=== PATIENT | female | born 1985 ===

== ENCOUNTER 2020-07-11 10:59 | Emergency (ER) | payer SELFPAY ==
[2020-07-11 11:07] VITALS: BP 132/71
[2020-07-11] MEDS ORDERED: oxyCODONE /ACETAMINOPHEN 5-325MG TAB PO ONE (11:18)
[2020-07-11] MEDS ORDERED: ONDANSETRON 4 MG ODT TAB PO ONE (11:18)
[2020-07-11] MEDS ORDERED: SODIUM CHLORIDE 0.9% IRR 500 ML BOTTLE IR ONE (11:21)
--- NOTE | 2020-07-11 11:36 | XRay Report ---
RIGHT FINGER(S)/HAND 3 VIEW(S) INDICATION / CLINICAL INFORMATION: Large laceration/amputation COMPARISON: None available. FINDINGS: BONES / JOINT(S): No acute fracture or subluxation. No significant arthritis. SOFT TISSUES: Soft tissue injury in the region of the PIP joint of the index finger. Mild edema/indur ation. ADDITIONAL FINDINGS: None. Signer Name: Tho Lozada MD Signed: 07/11/2020 11:32 AM Workstation Name: [id number]
[2020-07-11] MEDS ORDERED: DIPHtheria,PERTUSSIS(ACELL),TETANUS VACCINE/PF 0.5 ML VIAL IM ONE (12:27)
[2020-07-11] MEDS ORDERED: NEOMY 3.5 MG/BACIT 400 UNITS/POLY B 5000 UNITS/GM OINT PACKET TP ONE (12:30)
--- NOTE | 2020-07-11 12:30 | Emergency Department Report ---
- General Chief Complaint: Wound/Laceration Stated Complaint: RT FINGER LAC/PAIN Time Seen by Provider: 07/11/20 11:15 Source: patient Mode of arrival: Ambulatory Limitations: Language Barrier - History of Present Illness Initial Comments: zaina Sauceda used for [place]i interpretation Patient is a 35-year-old female presents emergency room with complaints of a laceration to the right index finger that occurred just prior to arrival. Patient states that she was cutting onions with a kitchen knife and accidentally cut herself. She denies ever injuring this finger in the past. She denies any numbness or weakness. She is still able to move the finger without difficulty. She denies any past medical history. No allergies to medications. She is unsure of her last tetanus immunization. - Related Data Previous Rx's Medication Instructions Recorded Last Taken Type HYDROcodone/APAP 5-325 [[place] 1 each PO Q6HR PRN #10 tablet 07/11/20 Unknown Rx 5/325] Ibuprofen [Motrin 600 MG tab] 600 mg PO Q8H PRN #14 tablet 07/11/20 Unknown Rx Neomycin/Bacitracin/Polymyxinb 1 applicatio TP BID #1 oint...g. 07/11/20 Unknown Rx [Triple Antibiotic Ointment] Sulfamethoxazole/Trimethoprim 1 each PO BID 7 Days #14 tablet 07/11/20 Unknown Rx [Bactrim DS TAB] Allergies Allergy/AdvReac Type Severity Reaction Status Date / Time No Known Allergies Allergy Unverified 07/11/20 11:06 ED Review of Systems ROS: Stated complaint: RT FINGER LAC/PAIN Other details as noted in HPI Comment: All other systems reviewed and negative ED Past Medical Hx - Past Medical History Previous Medical History?: No - Surgical History Past Surgical History?: No - Social History Smoking Status: Never Smoker Substance Use Type: None - Medications Home Medications: Home Medications Medication Instructions Recorded Confirmed Last Taken Type HYDROcodone/APAP 5-325 [[place] 1 each PO Q6HR PRN #10 tablet 07/11/20 Unknown Rx 5/325] Ibuprofen [Motrin 600 MG tab] 600 mg PO Q8H PRN #14 tablet 07/11/20 Unknown Rx Neomycin/Bacitracin/Polymyxinb 1 applicatio TP BID #1 oint...g. 07/11/20 Unknown Rx [Triple Antibiotic Ointment] Sulfamethoxazole/Trimethoprim 1 each PO BID 7 Days #14 tablet 07/11/20 Unknown Rx [Bactrim DS TAB] ED Physical Exam - General Limitations: No Limitations General appearance: alert, in no apparent distress - Head Head exam: Present: atraumatic, normocephalic - Eye Eye exam: Present: normal appearance - ENT ENT exam: Present: mucous membranes moist - Extremities Exam Extremities exam: Present: other (1 cm complete skin avulsion present to the right distal finger with a partial nail avulsion, no nail bed involvement, no muscle/tendon involvement, appears to only involve the skin and part of the subcutaneous fat, FROM of the right hand, fingers, neurovascularly intact, small amount of bleeding) - Neurological Exam Neurological exam: Present: alert, oriented X3 - Psychiatric Psychiatric exam: Present: normal affect, normal mood - Skin Skin exam: Present: warm, dry ED Course Vital Signs 07/11/20 07/11/20 11:06 11:34 Temperature 98 F Pulse Rate 79 Respiratory 16 18 Rate Blood Pressure 132/71 [Right] O2 Sat by Pulse 98 Oximetry ED Medical Decision Making - Radiology Data Radiology results: report reviewed RIGHT FINGER(S)/HAND 3 VIEW(S) INDICATION / CLINICAL INFORMATION: Large laceration/amputation COMPARISON: None available. FINDINGS: BONES / JOINT(S): No acute fracture or subluxation. No significant arthritis. SOFT TISSUES: Soft tissue injury in the region of the PIP joint of the index finger. Mild edema/induration. ADDITIONAL FINDINGS: None. Signer Name: Tho Lozada MD Signed: 07/11/2020 11:32 AM Workstation Name: [id number] Transcribed By: Dictated By: THO LOZADA III Electronically Authenticated By: THO LOZADA III Signed Date/Time: 07/11/20 1132 DD/ 1131 TD/TT: - Medical Decision Making zaina Sauceda used for [place]i interpretation Patient is a 35-year-old female presents emergency room with complaints of a laceration to the right index finger that occurred just prior to arrival. Patient states that she was cutting onions with a kitchen knife and accidentally cut herself. She denies ever injuring this finger in the past. She denies any numbness or weakness. She is still able to move the finger without difficulty. She denies any past medical history. No allergies to medications. She is unsure of her last tetanus immunization. vitals are normal. on exam: 1 cm complete skin avulsion present to the right distal finger with a partial nail avulsion, no nail bed involvement, no muscle/tendon involvement, appears to only involve the skin and part of the subcutaneous fat, FROM of the right hand, fingers, neurovascularly intact, small amount of bleeding. XR right hand: BONES / JOINT(S): No acute fracture or subluxation. No significant arthritis. SOFT TISSUES: Soft tissue injury in the region of the PIP joint of the index finger. Mild edema/induration. ADDITIONAL FINDINGS: None. Wound irrigated with 500 mL's of saline and Betadine. Triple antibiotic ointment and Vaseline gauze and sterile dressing placed by nurse. Patient given prescription for antibiotic ointment and Bactrim and pain medication. Advised patient to please take medication as prescribed. Do not drive or operate machinery while taking pain medication. Please keep area clean, dry, covered. Wash area twice a day with soap and water and pat dry. No hot tub, no pool, no soaking in water. Follow- up with a primary care doctor for reexamination. Return to emergency room for any new or worsening symptoms. Critical care attestation.: If time is entered above; I have spent that time in minutes in the direct care of this critically ill patient, excluding procedure time. ED Disposition Clinical Impression: Skin avulsion, Nail avulsion Disposition: [id number] TO HOME OR SELFCARE Is pt being admited?: No Does the pt Need Aspirin: No Condition: Stable Instructions: Skin Avulsion (ED) Additional Instructions: please take medication as prescribed. Do not drive or operate machinery while taking pain medication. Please keep area clean, dry, covered. Wash area twice a day with soap and water and pat dry. No hot tub, no pool, no soaking in water. Follow-up with a primary care doctor for reexamination. Return to emergency room for any new or worsening symptoms. Prescriptions: Sulfamethoxazole/Trimethoprim [Bactrim DS TAB] 1 each PO BID 7 Days #14 tablet Ibuprofen [Motrin 600 MG tab] 600 mg PO Q8H PRN #14 tablet PRN Reason: Pain, Moderate (4-6) HYDROcodone/APAP 5-325 [[place] 5/325] 1 each PO Q6HR PRN #10 tablet PRN Reason: Pain , Severe (7-10) Neomycin/Bacitracin/Polymyxinb [Triple Antibiotic Ointment] 1 applicatio TP BID #1 oint...g. Referrals: MARTA BUNCH MD [Staff Physician] - 2-3 Days Time of Disposition: 12:32 Print Language: AZERI
== END 2020-07-11 13:43 | disposition home or self-care (01) ==
LOC: ED 10:59
DX: S61.300A Unspecified open wound of right index finger with damage to nail, initial encounter (principal); X58.XXXA Exposure to other specified factors, initial encounter; Y93.89 Activity, other specified; Y92.89 Other specified places as the place of occurrence of the external cause; Y99.8 Other external cause status
CPT/HCPCS: 73140; 90471; 90715; 99283; A6250; Q0162